=== PATIENT | female | born 1975 | race Two or more races ===

== ENCOUNTER 2017-02-19 23:57 | Inpatient (IN) | payer OTHER ==
[~2017-02-19] VITALS: Ht 162.6 cm; Wt 99.0 kg
[2017-02-20 00:48] LABS: Basophils # (auto) 0.1 uL; Eosinophils # (auto) 0.1 uL; Lymphocytes # (auto) 2.7 uL; Monocytes # (auto) 0.8 uL; Neutrophils # (auto) 7.6 uL
[2017-02-20 00:50] LABS: Eosinophils % (auto) 0.8 % (0.0-7.0); Hematocrit 35.4 % (36.0-46.0); Hemoglobin 11.8 g/dL (12.2-16.2); Mean Corpuscular Hemoglobin 27.3 pg (28.0-32.0); Mean Corpuscular Hgb Conc. 33.4 g/dL (32.0-36.0); Mean Corpuscular Volume 81.9 fL (80.0-100.0); Monocytes % (auto) 7.3 % (0.0-12.0); Neutrophils % (auto) 66.9 % (37.0-80.0); Nucleated Red Blood Cells % 0.1 %; Platelet Count (auto) 342 10^3/uL (140-450); Red Blood Cells 4.33 10^6/uL (4.0-5.20); Red Cell Distribution Width 14.5 % (11.8-14.3); White Blood Cell 11.3 10^3/uL (4.4-10.8)
[2017-02-20] MEDS ORDERED: SODIUM CHLORIDE 0.9% 1,000 ML IV ONE (00:55)
[2017-02-20 01:00] LABS: INR 0.98 (0.9-1.15); Partial Thromboplastin Time 25.1 sec (22.64-33.71); Prothrombin Time 10.7 sec (9.37-12.3)
[2017-02-20] MEDS ORDERED: ALBUTEROL SULF 2.5 MG/0.5ML(0.5%) NEB SOLN HHN ONE (01:00)
[2017-02-20] MEDS ORDERED: IPRATROPIUM BROM 0.5 MG/2.5ML INH SOL HHN ONE (01:00)
[2017-02-20] MEDS ORDERED: methylPREDNISolone SOD SUCC 125 MG/2 ML VL IV ONE (01:00)
[2017-02-20 01:05] LABS: Albumin 3.4 g/dL (3.4-5.0); Calcium 8.5 mg/dL (8.5-10.1)
[2017-02-20 01:08] LABS: Bilirubin, Total 0.2 mg/dL (0.2-1.0); Total Protein 7.3 g/dL (6.4-8.2)
[2017-02-20 01:13] LABS: Potassium 2.9 mmol/L (3.5-5.1)
[2017-02-20] MEDS ORDERED: POTASSIUM CHL 20 Meq TABLET PO ONE ×2 (01:30→11:00)
[2017-02-20] MEDS ORDERED: IPRATROPIUM BROM 0.5 MG/2.5ML INH SOL ONE (03:52)
[2017-02-20] MEDS ORDERED: ALBUTEROL SULF 2.5 MG/0.5ML(0.5%) NEB SOLN ONE (03:52)
[2017-02-20] MEDS ORDERED: IPRATROPIUM BROM 0.5 MG/2.5ML INH SOL NEB PRN (06:45)
[2017-02-20] MEDS ORDERED: TEMAZEPAM 15 MG CAP PO PRN (06:45)
[2017-02-20] MEDS ORDERED: ALBUTEROL SULF 2.5 MG/0.5ML(0.5%) NEB SOLN NEB PRN ×2 (06:45→18:00)
[2017-02-20] MEDS ORDERED: ACETAMINOPHEN 325 MG TAB PO PRN (06:45)
[2017-02-20] MEDS ORDERED: DEXTROSE (50%) 50ML SYRG IV PRN (06:45)
[2017-02-20] MEDS: cefTRIAXone 1GM/10ml IVPUSH 10 ML IV SCH (09:19)
[2017-02-20] MEDS: ENOXAPARIN SOD 40 MG/0.4 ML SYRINGE SC SCH (10:27)
[2017-02-20] MEDS: METOPROLOL TARTRATE 25 MG TAB PO SCH ×2 (10:27→22:22)
[2017-02-20] MEDS: FAMOTIDINE 20 MG TAB PO SCH ×2 (10:27→22:22)
[2017-02-20] MEDS: HYDROcodone-ACET 5/325MG TAB PO PRN ×2 (10:32→19:55)
[2017-02-20] MEDS: InsuLIN REG 1unit/0.01ml Soln (100units/ml) SC SCH ×2 (12:11→17:34)
[2017-02-20] MEDS: ACCU-CHEK COMFORT CURVE STRIP VI SCH ×2 (12:11→17:34)
[2017-02-20 13:00] VITALS: BP 137/76
[2017-02-20 16:12] VITALS: BP 137/76
[2017-02-20 17:00] VITALS: BP 145/80
[2017-02-20] MEDS: ALBUTEROL SULF 2.5 MG/0.5ML(0.5%) NEB SOLN NEB PRN (20:06)
[2017-02-20] MEDS: BUDESONIDE (INHALATION) 0.5 MG/2 ML NEB NEB SCH (20:06)
[2017-02-20 21:19] LABS: Urine Bacteria NONE SEEN /hpf (None Seen); Urine Blood Negative /uL (Negative); Urine Specific Gravity 1.015 (1.001-1.035); Urine WBC 1 /hpf (0 - 5)
[2017-02-20] MEDS ORDERED: predniSONE 20 MG TAB PO SCH (22:00)
[2017-02-20] MEDS: predniSONE 20 MG TAB PO SCH (22:21)
[2017-02-21] MEDS: ACCU-CHEK COMFORT CURVE STRIP VI SCH ×4 (00:18→17:45)
[2017-02-21] MEDS: InsuLIN REG 1unit/0.01ml Soln (100units/ml) SC SCH ×4 (00:19→17:45)
[2017-02-21] MEDS: HYDROcodone-ACET 5/325MG TAB PO PRN ×3 (00:22→15:15)
[2017-02-21 06:00] VITALS: BP 111/86
[2017-02-21] MEDS ORDERED: PNEUMOCOCCAL VACC POLYS 25 MCG/0.5 ML VIAL IM ONE (06:15)
[2017-02-21] MEDS ORDERED: INFLUENZA QUAD 2017-2018 0.5 ML SYRG IM ONE (06:15)
[2017-02-21 07:30] VITALS: BP 106/45
[2017-02-21 08:00] VITALS: BP 106/45
[2017-02-21] MEDS: METOPROLOL TARTRATE 25 MG TAB PO SCH ×2 (10:00→21:37)
[2017-02-21] MEDS: predniSONE 20 MG TAB PO SCH (10:26)
[2017-02-21] MEDS: ENOXAPARIN SOD 40 MG/0.4 ML SYRINGE SC SCH (10:26)
[2017-02-21] MEDS: FAMOTIDINE 20 MG TAB PO SCH ×2 (10:26→21:35)
[2017-02-21] MEDS: cefTRIAXone 1GM/10ml IVPUSH 10 ML IV SCH (10:27)
[2017-02-21] MEDS: BUDESONIDE (INHALATION) 0.5 MG/2 ML NEB NEB SCH ×2 (10:52→19:55)
[2017-02-21] MEDS: ALBUTEROL SULF 2.5 MG/0.5ML(0.5%) NEB SOLN NEB PRN (10:56)
[2017-02-21 11:03] LABS: Eosinophils # (auto) 0 uL; Hematocrit 35.5 % (36.0-46.0); Hemoglobin 11.6 g/dL (12.2-16.2); Neutrophils # (auto) 21.3 uL
[2017-02-21 11:06] LABS: Basophils # (auto) 0 uL; Basophils % (auto) 0.1 % (0.0-2.0); Lymphocytes # (auto) 1.4 uL; Mean Corpuscular Hgb Conc. 32.7 g/dL (32.0-36.0); Mean Corpuscular Volume 82.7 fL (80.0-100.0); Monocytes % (auto) 4.3 % (0.0-12.0); Neutrophils % (auto) 89.6 % (37.0-80.0); Platelet Count (auto) 346 10^3/uL (140-450); Red Blood Cells 4.29 10^6/uL (4.0-5.20); Red Cell Distribution Width 14.9 % (11.8-14.3); White Blood Cell 23.8 10^3/uL (4.4-10.8)
[2017-02-21 11:32] LABS: BUN/Creatinine Ratio 22.4; Calcium 8.3 mg/dL (8.5-10.1); Potassium 4.2 mmol/L (3.5-5.1)
[2017-02-21 11:33] LABS: Albumin 3.2 g/dL (3.4-5.0); Bilirubin, Total 0.2 mg/dL (0.2-1.0); Total Protein 7.2 g/dL (6.4-8.2)
[2017-02-21] MEDS ORDERED: ALBUTEROL SULF 2.5 MG/0.5ML(0.5%) NEB SOLN NEB PRN (11:45)
[2017-02-21] MEDS: ONDANSETRON HCL 4 MG/2 ML VIAL IV PRN ×2 (11:52→15:03)
[2017-02-21 12:00] VITALS: BP 117/69
[2017-02-21 17:20] VITALS: BP 110/67
[2017-02-21] MEDS ORDERED: ASPI81TA27 PO (17:57)
[2017-02-21] MEDS ORDERED: METO25TA5 PO (17:57)
[2017-02-21] MEDS ORDERED: IPRAAER6 IN (17:57)
[2017-02-21] MEDS: IPRATROPIUM BROM 0.5 MG/2.5ML INH SOL NEB SCH ×2 (18:00→19:55)
[2017-02-21] MEDS: ALBUTEROL SULF 2.5 MG/0.5ML(0.5%) NEB SOLN NEB SCH (19:55)
[2017-02-21] MEDS: methylPREDNISolone SOD SUCC 125 MG/2 ML VL IV SCH (21:34)
[2017-02-21 23:17] VITALS: BP 94/51
[2017-02-22] MEDS: ACCU-CHEK COMFORT CURVE STRIP VI SCH ×5 (00:08→23:35)
[2017-02-22] MEDS: ALBUTEROL SULF 2.5 MG/0.5ML(0.5%) NEB SOLN NEB SCH ×4 (00:32→19:39)
[2017-02-22 04:30] VITALS: BP 114/55
[2017-02-22] MEDS: InsuLIN REG 1unit/0.01ml Soln (100units/ml) SC SCH ×5 (05:48→23:35)
[2017-02-22] MEDS: HYDROcodone-ACET 5/325MG TAB PO PRN ×3 (05:56→17:21)
[2017-02-22] MEDS: BUDESONIDE (INHALATION) 0.5 MG/2 ML NEB NEB SCH ×2 (07:23→19:39)
[2017-02-22] MEDS: IPRATROPIUM BROM 0.5 MG/2.5ML INH SOL NEB SCH ×3 (07:23→19:39)
[2017-02-22 07:30] VITALS: BP 108/70
[2017-02-22 09:00] VITALS: BP 108/70
[2017-02-22] MEDS: METOPROLOL TARTRATE 25 MG TAB PO SCH ×2 (10:00→21:50)
[2017-02-22] MEDS: ONDANSETRON HCL 4 MG/2 ML VIAL IV PRN ×2 (10:47→17:36)
[2017-02-22] MEDS: LEVOFLOXACIN 500 MG TAB PO SCH (10:47)
[2017-02-22] MEDS: FAMOTIDINE 20 MG TAB PO SCH ×2 (10:48→21:51)
[2017-02-22] MEDS: ENOXAPARIN SOD 40 MG/0.4 ML SYRINGE SC SCH (10:51)
[2017-02-22] MEDS: methylPREDNISolone SOD SUCC 125 MG/2 ML VL IV SCH ×2 (11:13→21:49)
[2017-02-22 13:00] VITALS: BP 117/71
[2017-02-22] MEDS ORDERED: IOHEXOL 350 MG/ML 100ML IJ ONE (13:47)
[2017-02-22 17:00] VITALS: BP 138/94
[2017-02-22 22:00] VITALS: BP 127/78
[2017-02-22] MEDS ORDERED: LACTULOSE 20Gm/30ML SOLN PO PRN (22:30)
[2017-02-23] MEDS: ALBUTEROL SULF 2.5 MG/0.5ML(0.5%) NEB SOLN NEB SCH ×2 (00:46→06:50)
[2017-02-23] MEDS: IPRATROPIUM BROM 0.5 MG/2.5ML INH SOL NEB SCH ×2 (00:46→06:50)
[2017-02-23 05:00] VITALS: BP 125/62
[2017-02-23] MEDS: ACCU-CHEK COMFORT CURVE STRIP VI SCH (05:46)
[2017-02-23] MEDS: HYDROcodone-ACET 5/325MG TAB PO PRN ×2 (05:46→09:46)
[2017-02-23] MEDS: InsuLIN REG 1unit/0.01ml Soln (100units/ml) SC SCH (05:46)
[2017-02-23] MEDS: BUDESONIDE (INHALATION) 0.5 MG/2 ML NEB NEB SCH (06:50)
[2017-02-23 07:30] VITALS: BP 107/56
[2017-02-23 08:26] VITALS: BP 107/56
[2017-02-23 09:58] VITALS: BP 107/56
[2017-02-23] MEDS: METOPROLOL TARTRATE 25 MG TAB PO SCH (10:00)
[2017-02-23] MEDS: LEVOFLOXACIN 500 MG TAB PO SCH (10:29)
[2017-02-23] MEDS: FAMOTIDINE 20 MG TAB PO SCH (10:29)
[2017-02-23] MEDS: methylPREDNISolone SOD SUCC 125 MG/2 ML VL IV SCH (10:29)
[2017-02-23] MEDS: ENOXAPARIN SOD 40 MG/0.4 ML SYRINGE SC SCH (10:30)
[2017-02-23 11:52] VITALS: BP 130/65
== END 2017-02-23 12:30 | DRG 202 ==
LOC: EDBD 23:57 → ER 02-20 00:06 → OVERFLOW 02-20 00:07 → EEVIPCON 02-20 00:07 → WEST WING 02-20 08:31
PROVIDERS: ADMIT Nurse Practitioner; ATTEND Internal Medicine
DX: J45.901 Unspecified asthma with (acute) exacerbation (principal); E44.1 Mild protein-calorie malnutrition; E11.9 Type 2 diabetes mellitus without complications; R16.0 Hepatomegaly, not elsewhere classified; D72.829 Elevated white blood cell count, unspecified; E87.6 Hypokalemia; F17.210 Nicotine dependence, cigarettes, uncomplicated; G43.909 Migraine, unspecified, not intractable, without status migrainosus; I10 Essential (primary) hypertension; R07.89 Other chest pain; M06.9 Rheumatoid arthritis, unspecified; Z82.3 Family history of stroke; Z86.73 Personal history of transient ischemic attack (TIA), and cerebral infarction without residual deficits; Z90.49 Acquired absence of other specified parts of digestive tract; Z98.51 Tubal ligation status; Z68.37 Body mass index [BMI] 37.0-37.9, adult; Z23 Encounter for immunization
CPT/HCPCS: 36415; 71045; 71046; 71275; 80053; 81001; 82962; 83735; 84484; 85025; 85610; 85730; 93005; 94010; 94640; 94761; 96361; 96374; J1815; J2405

== ENCOUNTER → 2017-06-14 | Outpatient (CLI) | payer OTHER ==
[~2017-06-14] MED LIST: ASPI81TA27 PO; IOHEXOL 300 MG/ML 100ML BOTTLE IJ ONE; IPRAAER6 IN; METO25TA5 PO
[2017-06-14 10:40] LABS: Calcium 8.8 mg/dL (8.5-10.1); Potassium 3.6 mmol/L (3.5-5.1)
== END | disposition home or self-care (01) ==
LOC: XYW 09:42
DX: R16.0 Hepatomegaly, not elsewhere classified (principal); J44.9 Chronic obstructive pulmonary disease, unspecified; I10 Essential (primary) hypertension; E11.9 Type 2 diabetes mellitus without complications; M06.9 Rheumatoid arthritis, unspecified; F17.210 Nicotine dependence, cigarettes, uncomplicated; Z90.49 Acquired absence of other specified parts of digestive tract
CPT/HCPCS: 36415; 74178; 80048; Q9967